=== PATIENT | male | born 1950 | race Caucasian/White ===

== ENCOUNTER 2022-02-10 14:28 | Inpatient (IN) | payer MEDICARE, OTHER ==
[~2022-02-10] VITALS: Ht 175.3 cm; Wt 78.5 kg
[~2022-02-10 14:28] MED LIST: AMLO-258 PO; FISH1CAP27 PO; METF-1211 PO; PRAV10TA39 PO
[2022-02-10] MEDS ORDERED: CEFX2I IV ×2 (15:38→15:40)
[2022-02-10] MEDS ORDERED: DOCU-385 PO (15:40)
[2022-02-10] MEDS ORDERED: MULT-1203 PO (15:42)
[2022-02-10] MEDS ORDERED: SENN8.6T90 PO (15:45)
[2022-02-10] MEDS ORDERED: ACET-2080 PO (15:50)
[2022-02-10] MEDS ORDERED: ACET-2247 PO (15:51)
[2022-02-10] MEDS ORDERED: BACI28OI29 TP (15:52)
[2022-02-10] MEDS ORDERED: BISA10SU11 PR (15:54)
[2022-02-10] MEDS ORDERED: BENZ1LOZ50 PO (15:54)
[2022-02-10] MEDS ORDERED: HYDR-4069 PO (15:59)
[2022-02-10] MEDS ORDERED: HYDR-3831 PO (16:00)
[2022-02-10] MEDS ORDERED: HYDR-4527 PO (17:06)
[2022-02-10] MEDS ORDERED: CEFT1VIA15 IV (17:06)
[2022-02-10] MEDS ORDERED: VANC1.5P11 IVPB (17:12)
[2022-02-10] MEDS ORDERED: DEXT50DI6 IVP (17:14)
[2022-02-10] MEDS ORDERED: DIPH25CA85 PO (17:15)
[2022-02-10] MEDS ORDERED: INSU100V SQ (17:16)
[2022-02-10] MEDS ORDERED: MAG30ORA11 PO (17:17)
[2022-02-10] MEDS ORDERED: ONDA-104 PO (17:18)
[2022-02-10] MEDS ORDERED: PERCT PO (17:18)
[2022-02-10] MEDS ORDERED: POLY17PO47 PO (17:19)
[2022-02-10] MEDS ORDERED: ACETAMINOPHEN 325 MG TABLET PO PRN (18:00)
[2022-02-10] MEDS ORDERED: DEXTROSE 50%-WATER 25 GM/50 ML SYRINGE IVP PRN (18:00)
[2022-02-10] MEDS: INSULIN LISPRO 100 UNITS/ML SQ PRN ×2 (18:17→22:13)
[2022-02-10 18:24] VITALS: BP 154/56
[2022-02-10 19:06] LABS: GLUCOMETER DEV NAME(LOC) 2WR.2B; GLUCOSE,POINT OF CARE 142 MG/DL (70-110)
[2022-02-10] MEDS ORDERED: SODIUM CHLORIDE 0.9% 250 ML IV ONE (19:54)
[2022-02-10 20:00] VITALS: BP 149/75
[2022-02-10] MEDS ORDERED: BENZOCAINE/MENTHOL LOZENGE PO PRN (20:00)
[2022-02-10] MEDS ORDERED: POLYETHYLENE GLYCOL 3350 17 GM PACKET PO PRN (20:00)
[2022-02-10] MEDS ORDERED: HydrOXYzine HCL 25 MG TABLET PO PRN (20:00)
[2022-02-10] MEDS ORDERED: ONDANSETRON HCL 4 MG TABLET PO PRN (20:00)
[2022-02-10] MEDS ORDERED: MAG HYDROX/AL HYDROX/SIMETH 30 ML SUSP UDCUP PO PRN (20:00)
[2022-02-10] MEDS ORDERED: BISACODYL 10 MG RECTAL RECTAL SUPPOSITORY PR PRN (20:00)
[2022-02-10] MEDS ORDERED: MELATONIN 5 MG TABLET PO PRN (20:15)
[2022-02-10] MEDS: SENNA 187 MG TABLET PO SCH (20:31)
[2022-02-10] MEDS: DOCUSATE SODIUM 100 MG CAPSULE PO SCH (20:31)
[2022-02-10] MEDS: OxyCODONE HCL/ACETAMINOPHEN 5-325 MG TABLET PO PRN (20:36)
[2022-02-10] MEDS: ETHYL ALCOHOL 62% ANTISEPTIC NASAL SANITIZER 0.6 ML AMPUL NASAL SCH (21:02)
[2022-02-10] MEDS: VANCOMYCIN HCL 1.5 GM in DEXTROSE 5%-WATER 250 ML IV SCH (21:02)
[2022-02-10] MEDS: CefTRIAXone 1 GM/DEXTROSE 50 ML IV SCH (22:04)
[2022-02-10 22:32] LABS: GLUCOMETER DEV NAME(LOC) 2WR.2B; GLUCOSE,POINT OF CARE 233 MG/DL (70-110)
[2022-02-11] MEDS: OxyCODONE HCL/ACETAMINOPHEN 5-325 MG TABLET PO PRN ×4 (02:10→20:03)
[2022-02-11 07:11] LABS: GLUCOMETER DEV NAME(LOC) 2WR.2B; GLUCOSE,POINT OF CARE 143 MG/DL (70-110)
[2022-02-11 07:57] LABS: ALANINE AMINOTRANSFERASE 199 U/L (12-78); ALBUMIN 2.7 g/dL (3.4-5.0); ALKALINE PHOSPHATASE 221 U/L (46-116); ANION GAP 7 mmol/L (8-16); ASPARTATE AMINOTRANSFERASE 127 U/L (15-37); BILIRUBIN,TOTAL 0.7 mg/dL (0.1-1.0); CALCIUM, TOTAL 8.7 mg/dL (8.8-10.5); CARBON DIOXIDE 26 mmol/L (22-29); CHLORIDE 98 mmol/L (98-107); CREATININE 0.79 mg/dL (0.60-1.30); GLUCOSE,RANDOM 148 mg/dL (70-110); POTASSIUM 3.7 mmol/L (3.5-5.1); SODIUM SERUM 131 mmol/L (136-145); TOTAL PROTEIN, SERUM 6.5 g/dL (6.4-8.2); UREA NITROGEN, BLOOD 18 mg/dL (7-18)
[2022-02-11 07:58] LABS: GLOMERULAR FILTR. RATE CALC > 60 mL/min (>60)
[2022-02-11] MEDS: VANCOMYCIN HCL 1.5 GM in DEXTROSE 5%-WATER 250 ML IV SCH ×2 (08:03→19:31)
[2022-02-11 08:04] LABS: HEMATOCRIT 32.9 % (41-53); HEMOGLOBIN 10.9 g/dL (13.5-17.5); MEAN CORPUSCULAR HEMOGLOBIN 27.5 pg (26.0-34.0); MEAN CORPUSCULAR HGB CONC 33.2 G/dL (31.0-37.0); MEAN CORPUSCULAR VOLUME 83 fL (80-100); RED BLOOD CELL COUNT(AUTO) 3.97 MIL/uL (4.50-5.90); RED CELL DISTRIBUTION WIDTH 14.8 % (11.5-14.5)
[2022-02-11] MEDS: INSULIN LISPRO 100 UNITS/ML SQ PRN ×3 (08:06→21:07)
[2022-02-11] MEDS: ETHYL ALCOHOL 62% ANTISEPTIC NASAL SANITIZER 0.6 ML AMPUL NASAL SCH ×2 (08:13→19:56)
[2022-02-11] MEDS: DOCUSATE SODIUM 100 MG CAPSULE PO SCH ×2 (08:14→19:56)
[2022-02-11] MEDS: MULTIVITAMINS, THERAPEUTIC TABLET PO SCH (08:14)
[2022-02-11 08:29] LABS: PLATELET COUNT (AUTO) 236 K/uL (150-450)
[2022-02-11 08:30] LABS: BAND NEUTROPHILS % (MANUAL) 0 % (0-5)
[2022-02-11 08:33] LABS: LYMPHOCYTES % (MANUAL) 17 % (22-44); MONOCYTES % (MANUAL) 4 % (2-9); SEGMENTED NEUTROPHILS % 79 % (40-70)
[2022-02-11 08:35] VITALS: BP 140/78
[2022-02-11 10:20] VITALS: BP 140/78
[2022-02-11 12:36] LABS: GLUCOMETER DEV NAME(LOC) 2WR.2B; GLUCOSE,POINT OF CARE 194 MG/DL (70-110)
[2022-02-11 15:56] LABS: APPEARANCE,URINE CLEAR (CLEAR); BILIRUBIN,URINE NEGATIVE (NEGATIVE); GLUCOSE, URINE (UA) NEGATIVE (NEGATIVE); KETONES,URINE NEGATIVE (NEGATIVE); LEUKOCYTE ESTERASE ,URINE NEGATIVE (NEGATIVE); NITRATE,URINE NEGATIVE (NEGATIVE); OCCULT BLOOD,URINE NEGATIVE (NEGATIVE); PROTEIN,URINE NEGATIVE (NEGATIVE); SPECIFIC GRAVITIY, URINE 1.008 (1.003-1.030); UROBILINOGEN,URINE <=1.0 mg/dL (<=1.0)
[2022-02-11 16:03] LABS: BACTERIA,URINE None Seen /HPF (None Seen); RBC,URINE 0-2 /HPF (0-2); SQUAMOUS EPITHELIAL CELL,UR Rare /LPF (None Seen); WBC,URINE 0-2 /HPF (0-5)
[2022-02-11 16:11] VITALS: BP 145/87
[2022-02-11] MEDS: TAMSULOSIN HCL 0.4 MG CAPSULE PO SCH (19:56)
[2022-02-11] MEDS: SENNA 187 MG TABLET PO SCH (19:56)
[2022-02-11] MEDS: ENOXAPARIN SODIUM 30 MG/0.3 ML PF SYRINGE SQ SCH (19:57)
[2022-02-11 20:03] VITALS: BP 124/76
[2022-02-11] MEDS: CefTRIAXone 1 GM/DEXTROSE 50 ML IV SCH (21:03)
[2022-02-11 22:01] LABS: GLUCOMETER DEV NAME(LOC) 2WR.2B; GLUCOSE,POINT OF CARE 136 MG/DL (70-110)
[2022-02-11 22:01] LABS: GLUCOMETER DEV NAME(LOC) 2WR.2B; GLUCOSE,POINT OF CARE 225 MG/DL (70-110)
[2022-02-12] MEDS: HYDROCODONE/ACETAMINOPHEN 5-325 MG TABLET PO PRN (01:04)
[2022-02-12 06:41] LABS: GLUCOMETER DEV NAME(LOC) 2WR.1C; GLUCOSE,POINT OF CARE 146 MG/DL (70-110)
[2022-02-12] MEDS: VANCOMYCIN HCL 1.5 GM in DEXTROSE 5%-WATER 250 ML IV SCH ×2 (07:39→19:37)
[2022-02-12] MEDS: ENOXAPARIN SODIUM 30 MG/0.3 ML PF SYRINGE SQ SCH ×2 (07:46→20:39)
[2022-02-12] MEDS: MULTIVITAMINS, THERAPEUTIC TABLET PO SCH (07:46)
[2022-02-12] MEDS: ETHYL ALCOHOL 62% ANTISEPTIC NASAL SANITIZER 0.6 ML AMPUL NASAL SCH ×2 (07:46→20:38)
[2022-02-12] MEDS: DOCUSATE SODIUM 100 MG CAPSULE PO SCH ×2 (07:46→20:38)
[2022-02-12] MEDS: INSULIN LISPRO 100 UNITS/ML SQ PRN ×4 (07:53→21:33)
[2022-02-12 08:22] VITALS: BP 158/81
[2022-02-12] MEDS: OxyCODONE HCL/ACETAMINOPHEN 5-325 MG TABLET PO PRN ×3 (08:22→21:32)
[2022-02-12 12:11] LABS: GLUCOMETER DEV NAME(LOC) 2WR.2B; GLUCOSE,POINT OF CARE 162 MG/DL (70-110)
[2022-02-12 12:22] VITALS: BP 138/74
[2022-02-12 18:02] LABS: GLUCOMETER DEV NAME(LOC) 2WR.1C; GLUCOSE,POINT OF CARE 153 MG/DL (70-110)
[2022-02-12] MEDS: SENNA 187 MG TABLET PO SCH (20:38)
[2022-02-12] MEDS: TraZODone HCL 50 MG TABLET PO PRN (20:39)
[2022-02-12] MEDS: TAMSULOSIN HCL 0.4 MG CAPSULE PO SCH (20:39)
[2022-02-12] MEDS: CefTRIAXone 1 GM/DEXTROSE 50 ML IV SCH (20:44)
[2022-02-12 21:32] VITALS: BP 134/86
[2022-02-12] MEDS ORDERED: SODIUM CHLORIDE 0.9% 250 ML IV ONE (21:38)
[2022-02-12 22:01] LABS: GLUCOMETER DEV NAME(LOC) 2WR.2B; GLUCOSE,POINT OF CARE 202 MG/DL (70-110)
[2022-02-13] MEDS: OxyCODONE HCL/ACETAMINOPHEN 5-325 MG TABLET PO PRN ×3 (06:30→19:22)
[2022-02-13 07:09] LABS: ALANINE AMINOTRANSFERASE 218 U/L (12-78); ALBUMIN 2.8 g/dL (3.4-5.0); ALKALINE PHOSPHATASE 234 U/L (46-116); ANION GAP 6 mmol/L (8-16); ASPARTATE AMINOTRANSFERASE 68 U/L (15-37); BILIRUBIN,TOTAL 0.5 mg/dL (0.1-1.0); CALCIUM, TOTAL 8.8 mg/dL (8.8-10.5); CARBON DIOXIDE 29 mmol/L (22-29); CHLORIDE 100 mmol/L (98-107); CREATININE 0.95 mg/dL (0.60-1.30); GLUCOSE,RANDOM 160 mg/dL (70-110); SODIUM SERUM 135 mmol/L (136-145); TOTAL PROTEIN, SERUM 6.6 g/dL (6.4-8.2); UREA NITROGEN, BLOOD 22 mg/dL (7-18)
[2022-02-13 07:11] LABS: GLOMERULAR FILTR. RATE CALC > 60 mL/min (>60)
[2022-02-13 07:25] VITALS: BP 150/73
[2022-02-13 08:07] LABS: HEPATITIS C AB (EIA) <0.1 s/co ratio (0.0-0.9)
[2022-02-13] MEDS: VANCOMYCIN HCL 1.5 GM in DEXTROSE 5%-WATER 250 ML IV SCH ×2 (08:25→20:22)
[2022-02-13] MEDS: DOCUSATE SODIUM 100 MG CAPSULE PO SCH ×3 (08:26→21:00)
[2022-02-13] MEDS: MULTIVITAMINS, THERAPEUTIC TABLET PO SCH (08:26)
[2022-02-13] MEDS: ENOXAPARIN SODIUM 30 MG/0.3 ML PF SYRINGE SQ SCH ×2 (08:26→20:42)
[2022-02-13] MEDS: ETHYL ALCOHOL 62% ANTISEPTIC NASAL SANITIZER 0.6 ML AMPUL NASAL SCH ×2 (08:27→20:42)
[2022-02-13] MEDS: INSULIN LISPRO 100 UNITS/ML SQ PRN ×3 (09:09→20:55)
[2022-02-13 11:00] VITALS: BP 148/81
[2022-02-13 18:11] LABS: GLUCOMETER DEV NAME(LOC) 2WR.2B; GLUCOSE,POINT OF CARE 152 MG/DL (70-110)
[2022-02-13] MEDS: TraZODone HCL 50 MG TABLET PO PRN (19:20)
[2022-02-13 20:23] VITALS: BP 144/82
[2022-02-13] MEDS: SENNA 187 MG TABLET PO SCH ×2 (20:42→21:00)
[2022-02-13] MEDS: TAMSULOSIN HCL 0.4 MG CAPSULE PO SCH (20:43)
[2022-02-13] MEDS: CefTRIAXone 1 GM/DEXTROSE 50 ML IV SCH (21:43)
[2022-02-13 22:16] LABS: GLUCOMETER DEV NAME(LOC) 2WR.2B; GLUCOSE,POINT OF CARE 208 MG/DL (70-110)
[2022-02-13 22:41] LABS: GLUCOMETER DEV NAME(LOC) 2WR.1C; GLUCOSE,POINT OF CARE 151 MG/DL (70-110)
[2022-02-13 22:41] LABS: GLUCOMETER DEV NAME(LOC) 2WR.1C; GLUCOSE,POINT OF CARE 139 MG/DL (70-110)
[2022-02-14] MEDS: OxyCODONE HCL/ACETAMINOPHEN 5-325 MG TABLET PO PRN ×2 (04:52→14:12)
[2022-02-14] MEDS: VANCOMYCIN HCL 1.5 GM in DEXTROSE 5%-WATER 250 ML IV SCH ×2 (07:49→20:51)
[2022-02-14] MEDS: 0.9% SODIUM CHLORIDE 10 ML SYRINGE IVP SCH ×2 (07:50→20:16)
[2022-02-14] MEDS: ENOXAPARIN SODIUM 30 MG/0.3 ML PF SYRINGE SQ SCH ×2 (07:54→20:14)
[2022-02-14] MEDS: DOCUSATE SODIUM 100 MG CAPSULE PO SCH ×2 (07:54→20:15)
[2022-02-14] MEDS: ETHYL ALCOHOL 62% ANTISEPTIC NASAL SANITIZER 0.6 ML AMPUL NASAL SCH ×2 (07:54→20:15)
[2022-02-14] MEDS: MULTIVITAMINS, THERAPEUTIC TABLET PO SCH (07:54)
[2022-02-14 08:51] VITALS: BP 100/68
[2022-02-14 12:16] LABS: GLUCOMETER DEV NAME(LOC) 2WR.2B; GLUCOSE,POINT OF CARE 136 MG/DL (70-110)
[2022-02-14] MEDS: INSULIN LISPRO 100 UNITS/ML SQ PRN (17:06)
[2022-02-14 17:16] LABS: GLUCOMETER DEV NAME(LOC) 2WR.2B; GLUCOSE,POINT OF CARE 153 MG/DL (70-110)
[2022-02-14 20:00] VITALS: BP 154/93
[2022-02-14] MEDS: CefTRIAXone 1 GM/DEXTROSE 50 ML IV SCH (20:14)
[2022-02-14] MEDS: SENNA 187 MG TABLET PO SCH (20:15)
[2022-02-14] MEDS: TAMSULOSIN HCL 0.4 MG CAPSULE PO SCH (20:15)
[2022-02-14 20:46] LABS: GLUCOMETER DEV NAME(LOC) 2WR.1C; GLUCOSE,POINT OF CARE 136 MG/DL (70-110)
[2022-02-14] MEDS: TraZODone HCL 50 MG TABLET PO PRN (20:51)
[2022-02-14 21:51] LABS: GLUCOMETER DEV NAME(LOC) 2WR.2B; GLUCOSE,POINT OF CARE 132 MG/DL (70-110)
[2022-02-15] MEDS: OxyCODONE HCL/ACETAMINOPHEN 5-325 MG TABLET PO PRN ×2 (01:58→20:20)
[2022-02-15 07:26] LABS: GLUCOMETER DEV NAME(LOC) 2WR.1C; GLUCOSE,POINT OF CARE 144 MG/DL (70-110)
[2022-02-15] MEDS: INSULIN LISPRO 100 UNITS/ML SQ PRN ×2 (07:39→20:25)
[2022-02-15] MEDS: VANCOMYCIN HCL 1.5 GM in DEXTROSE 5%-WATER 250 ML IV SCH ×2 (07:47→19:58)
[2022-02-15 08:00] VITALS: BP 143/89
[2022-02-15] MEDS: ETHYL ALCOHOL 62% ANTISEPTIC NASAL SANITIZER 0.6 ML AMPUL NASAL SCH ×2 (08:56→20:20)
[2022-02-15] MEDS: DOCUSATE SODIUM 100 MG CAPSULE PO SCH ×2 (08:57→20:19)
[2022-02-15] MEDS: ENOXAPARIN SODIUM 30 MG/0.3 ML PF SYRINGE SQ SCH ×2 (08:58→20:19)
[2022-02-15] MEDS: MULTIVITAMINS, THERAPEUTIC TABLET PO SCH (08:58)
[2022-02-15] MEDS: 0.9% SODIUM CHLORIDE 10 ML SYRINGE IVP SCH ×2 (08:59→22:09)
[2022-02-15 20:15] VITALS: BP 145/74
[2022-02-15] MEDS: TAMSULOSIN HCL 0.4 MG CAPSULE PO SCH (20:19)
[2022-02-15] MEDS: SENNA 187 MG TABLET PO SCH (20:19)
[2022-02-15] MEDS: TraZODone HCL 50 MG TABLET PO PRN (20:19)
[2022-02-15 20:56] LABS: GLUCOMETER DEV NAME(LOC) 2WR.2B; GLUCOSE,POINT OF CARE 169 MG/DL (70-110)
[2022-02-15] MEDS: CefTRIAXone 1 GM/DEXTROSE 50 ML IV SCH (22:09)
[2022-02-16 05:46] LABS: GLUCOMETER DEV NAME(LOC) 2WR.1C; GLUCOSE,POINT OF CARE 126 MG/DL (70-110)
[2022-02-16 07:10] LABS: ALANINE AMINOTRANSFERASE 114 U/L (12-78); ALKALINE PHOSPHATASE 179 U/L (46-116); ANION GAP 6 mmol/L (8-16); ASPARTATE AMINOTRANSFERASE 31 U/L (15-37); BILIRUBIN,TOTAL 0.5 mg/dL (0.1-1.0); CALCIUM, TOTAL 8.8 mg/dL (8.8-10.5); CARBON DIOXIDE 29 mmol/L (22-29); CHLORIDE 100 mmol/L (98-107); CREATININE 0.95 mg/dL (0.60-1.30); GLUCOSE,RANDOM 151 mg/dL (70-110); POTASSIUM 4.1 mmol/L (3.5-5.1); SODIUM SERUM 135 mmol/L (136-145); TOTAL PROTEIN, SERUM 6.7 g/dL (6.4-8.2); UREA NITROGEN, BLOOD 17 mg/dL (7-18)
[2022-02-16 07:15] LABS: GLOMERULAR FILTR. RATE CALC > 60 mL/min (>60)
[2022-02-16] MEDS ORDERED: SODIUM CHLORIDE 0.9% 100 ML ONE (08:08)
[2022-02-16] MEDS: VANCOMYCIN HCL 1.5 GM in DEXTROSE 5%-WATER 250 ML IV SCH ×2 (08:10→19:54)
[2022-02-16 08:15] VITALS: BP 157/89
[2022-02-16] MEDS: ENOXAPARIN SODIUM 30 MG/0.3 ML PF SYRINGE SQ SCH ×2 (08:16→20:35)
[2022-02-16] MEDS: MULTIVITAMINS, THERAPEUTIC TABLET PO SCH (08:17)
[2022-02-16] MEDS: DOCUSATE SODIUM 100 MG CAPSULE PO SCH ×2 (08:17→20:34)
[2022-02-16] MEDS: INSULIN LISPRO 100 UNITS/ML SQ PRN ×3 (08:21→20:40)
[2022-02-16] MEDS: ETHYL ALCOHOL 62% ANTISEPTIC NASAL SANITIZER 0.6 ML AMPUL NASAL SCH ×2 (08:24→20:34)
[2022-02-16] MEDS: OxyCODONE HCL/ACETAMINOPHEN 5-325 MG TABLET PO PRN ×2 (08:27→20:42)
[2022-02-16] MEDS: 0.9% SODIUM CHLORIDE 10 ML SYRINGE IVP SCH ×2 (09:57→23:32)
[2022-02-16 12:11] LABS: GLUCOMETER DEV NAME(LOC) 2WR.2B; GLUCOSE,POINT OF CARE 158 MG/DL (70-110)
[2022-02-16] MEDS: GABAPENTIN 100 MG CAPSULE PO SCH ×2 (16:11→20:34)
[2022-02-16] MEDS: MetFORMIN HCL 500 MG TABLET PO SCH (17:32)
[2022-02-16 19:46] LABS: GLUCOMETER DEV NAME(LOC) 2WR.2B; GLUCOSE,POINT OF CARE 132 MG/DL (70-110)
[2022-02-16 20:11] VITALS: BP 161/78
[2022-02-16] MEDS: TraZODone HCL 50 MG TABLET PO PRN (20:34)
[2022-02-16] MEDS: SENNA 187 MG TABLET PO SCH (20:34)
[2022-02-16] MEDS: TAMSULOSIN HCL 0.4 MG CAPSULE PO SCH (20:35)
[2022-02-16 20:36] LABS: GLUCOMETER DEV NAME(LOC) 2WR.1C; GLUCOSE,POINT OF CARE 151 MG/DL (70-110)
[2022-02-16 20:42] VITALS: BP 146/74
[2022-02-16 21:31] LABS: GLUCOMETER DEV NAME(LOC) 2WR.1C; GLUCOSE,POINT OF CARE 235 MG/DL (70-110)
[2022-02-16] MEDS: CefTRIAXone 1 GM/DEXTROSE 50 ML IV SCH (23:31)
[2022-02-17] MEDS: TraZODone HCL 50 MG TABLET PO PRN ×3 (05:38→21:05)
[2022-02-17 07:11] LABS: GLUCOMETER DEV NAME(LOC) 2WR.2B; GLUCOSE,POINT OF CARE 139 MG/DL (70-110)
[2022-02-17] MEDS: GABAPENTIN 100 MG CAPSULE PO SCH ×3 (08:32→21:05)
[2022-02-17] MEDS: MetFORMIN HCL 500 MG TABLET PO SCH ×2 (08:32→16:15)
[2022-02-17] MEDS: MULTIVITAMINS, THERAPEUTIC TABLET PO SCH (08:32)
[2022-02-17] MEDS: ETHYL ALCOHOL 62% ANTISEPTIC NASAL SANITIZER 0.6 ML AMPUL NASAL SCH ×2 (08:33→21:12)
[2022-02-17] MEDS: ENOXAPARIN SODIUM 30 MG/0.3 ML PF SYRINGE SQ SCH ×2 (08:33→21:04)
[2022-02-17] MEDS: DOCUSATE SODIUM 100 MG CAPSULE PO SCH ×2 (08:33→21:04)
[2022-02-17] MEDS: 0.9% SODIUM CHLORIDE 10 ML SYRINGE IVP SCH ×2 (08:33→21:17)
[2022-02-17 08:42] VITALS: BP 138/77
[2022-02-17] MEDS: OxyCODONE HCL/ACETAMINOPHEN 5-325 MG TABLET PO PRN (08:42)
[2022-02-17 14:31] LABS: GLUCOMETER DEV NAME(LOC) 2WR.2B; GLUCOSE,POINT OF CARE 109 MG/DL (70-110)
[2022-02-17 16:55] LABS: GLUCOMETER DEV NAME(LOC) 2WR.2B; GLUCOSE,POINT OF CARE 107 MG/DL (70-110)
[2022-02-17 20:02] VITALS: BP 131/77
[2022-02-17] MEDS: TAMSULOSIN HCL 0.4 MG CAPSULE PO SCH (21:04)
[2022-02-17] MEDS: SENNA 187 MG TABLET PO SCH (21:05)
[2022-02-17] MEDS: HYDROCODONE/ACETAMINOPHEN 5-325 MG TABLET PO PRN (21:05)
[2022-02-17] MEDS: INSULIN LISPRO 100 UNITS/ML SQ PRN (21:15)
[2022-02-17 21:32] LABS: GLUCOMETER DEV NAME(LOC) 2WR.2B; GLUCOSE,POINT OF CARE 143 MG/DL (70-110)
[2022-02-18 07:16] LABS: GLUCOMETER DEV NAME(LOC) 2WR.1C; GLUCOSE,POINT OF CARE 109 MG/DL (70-110)
[2022-02-18 08:10] VITALS: BP 143/71
[2022-02-18] MEDS: MetFORMIN HCL 500 MG TABLET PO SCH (08:20)
[2022-02-18] MEDS: DOCUSATE SODIUM 100 MG CAPSULE PO SCH ×2 (08:21→20:20)
[2022-02-18] MEDS: ETHYL ALCOHOL 62% ANTISEPTIC NASAL SANITIZER 0.6 ML AMPUL NASAL SCH ×2 (08:21→20:19)
[2022-02-18] MEDS: MULTIVITAMINS, THERAPEUTIC TABLET PO SCH (08:22)
[2022-02-18] MEDS: GABAPENTIN 100 MG CAPSULE PO SCH ×3 (08:23→20:20)
[2022-02-18] MEDS: ENOXAPARIN SODIUM 30 MG/0.3 ML PF SYRINGE SQ SCH ×2 (08:24→20:20)
[2022-02-18] MEDS: 0.9% SODIUM CHLORIDE 10 ML SYRINGE IVP SCH ×2 (08:30→20:19)
[2022-02-18] MEDS: HYDROCODONE/ACETAMINOPHEN 5-325 MG TABLET PO PRN ×3 (12:15→20:21)
[2022-02-18] MEDS: INSULIN LISPRO 100 UNITS/ML SQ PRN (17:51)
[2022-02-18] MEDS: MetFORMIN HCL 850 MG TABLET PO SCH (17:51)
[2022-02-18 18:52] LABS: GLUCOMETER DEV NAME(LOC) 2WR.2B; GLUCOSE,POINT OF CARE 164 MG/DL (70-110)
[2022-02-18 18:56] LABS: GLUCOMETER DEV NAME(LOC) 2WR.1C; GLUCOSE,POINT OF CARE 108 MG/DL (70-110)
[2022-02-18 19:57] VITALS: BP 140/69
[2022-02-18] MEDS: SENNA 187 MG TABLET PO SCH (20:20)
[2022-02-18] MEDS: TAMSULOSIN HCL 0.4 MG CAPSULE PO SCH (20:20)
[2022-02-18] MEDS: TraZODone HCL 50 MG TABLET PO PRN (20:21)
[2022-02-19 05:26] LABS: GLUCOMETER DEV NAME(LOC) 2WR.1C; GLUCOSE,POINT OF CARE 117 MG/DL (70-110)
[2022-02-19 07:06] LABS: GLUCOMETER DEV NAME(LOC) 2WR.1C; GLUCOSE,POINT OF CARE 113 MG/DL (70-110)
[2022-02-19] MEDS: ETHYL ALCOHOL 62% ANTISEPTIC NASAL SANITIZER 0.6 ML AMPUL NASAL SCH ×2 (08:17→20:07)
[2022-02-19] MEDS: GABAPENTIN 100 MG CAPSULE PO SCH ×3 (08:18→20:05)
[2022-02-19] MEDS: MULTIVITAMINS, THERAPEUTIC TABLET PO SCH (08:18)
[2022-02-19] MEDS: ENOXAPARIN SODIUM 30 MG/0.3 ML PF SYRINGE SQ SCH ×2 (08:18→20:05)
[2022-02-19] MEDS: DOCUSATE SODIUM 100 MG CAPSULE PO SCH ×2 (08:18→20:03)
[2022-02-19] MEDS: MetFORMIN HCL 850 MG TABLET PO SCH ×2 (08:18→15:45)
[2022-02-19] MEDS: 0.9% SODIUM CHLORIDE 10 ML SYRINGE IVP SCH ×2 (08:19→20:07)
[2022-02-19] MEDS: HYDROCODONE/ACETAMINOPHEN 5-325 MG TABLET PO PRN ×2 (08:28→20:10)
[2022-02-19 08:30] VITALS: BP 143/76
[2022-02-19 12:22] LABS: GLUCOMETER DEV NAME(LOC) 2WR.1C; GLUCOSE,POINT OF CARE 102 MG/DL (70-110)
[2022-02-19 17:31] LABS: GLUCOMETER DEV NAME(LOC) 2WR.1C; GLUCOSE,POINT OF CARE 101 MG/DL (70-110)
[2022-02-19] MEDS: SENNA 187 MG TABLET PO SCH (20:03)
[2022-02-19] MEDS: TAMSULOSIN HCL 0.4 MG CAPSULE PO SCH (20:05)
[2022-02-19 20:10] VITALS: BP 147/77
[2022-02-20 05:41] LABS: GLUCOMETER DEV NAME(LOC) 2WR.1C; GLUCOSE,POINT OF CARE 123 MG/DL (70-110)
[2022-02-20 07:50] VITALS: BP 138/74
[2022-02-20] MEDS: MetFORMIN HCL 850 MG TABLET PO SCH ×2 (08:43→16:29)
[2022-02-20] MEDS: ETHYL ALCOHOL 62% ANTISEPTIC NASAL SANITIZER 0.6 ML AMPUL NASAL SCH ×2 (08:43→20:23)
[2022-02-20] MEDS: GABAPENTIN 100 MG CAPSULE PO SCH ×3 (08:44→20:22)
[2022-02-20] MEDS: DOCUSATE SODIUM 100 MG CAPSULE PO SCH ×2 (08:44→20:23)
[2022-02-20] MEDS: MULTIVITAMINS, THERAPEUTIC TABLET PO SCH (08:44)
[2022-02-20] MEDS: ENOXAPARIN SODIUM 30 MG/0.3 ML PF SYRINGE SQ SCH ×2 (08:44→20:22)
[2022-02-20] MEDS: HYDROCODONE/ACETAMINOPHEN 5-325 MG TABLET PO PRN ×2 (08:52→20:36)
[2022-02-20] MEDS: 0.9% SODIUM CHLORIDE 10 ML SYRINGE IVP SCH ×2 (08:52→20:23)
[2022-02-20 09:11] LABS: GLUCOMETER DEV NAME(LOC) 2WR.1C; GLUCOSE,POINT OF CARE 93 MG/DL (70-110)
[2022-02-20] MEDS ORDERED: TAMS-13 PO (10:40)
[2022-02-20] MEDS ORDERED: METF-1185 PO (10:40)
[2022-02-20] MEDS ORDERED: GABA-1216 PO (10:40)
[2022-02-20] MEDS ORDERED: MELA5TAB40 PO (10:42)
[2022-02-20] MEDS ORDERED: TRAZ-252 PO (10:42)
[2022-02-20 12:51] LABS: GLUCOMETER DEV NAME(LOC) 2WR.2B; GLUCOSE,POINT OF CARE 100 MG/DL (70-110)
[2022-02-20 18:50] LABS: GLUCOMETER DEV NAME(LOC) 2WR.1C; GLUCOSE,POINT OF CARE 95 MG/DL (70-110)
[2022-02-20 20:00] VITALS: BP 127/72
[2022-02-20] MEDS: SENNA 187 MG TABLET PO SCH (20:23)
[2022-02-20] MEDS: TAMSULOSIN HCL 0.4 MG CAPSULE PO SCH (20:23)
[2022-02-20] MEDS ORDERED: HYDR-4723 PO (20:49)
[2022-02-20 21:41] LABS: GLUCOMETER DEV NAME(LOC) 2WR.2B; GLUCOSE,POINT OF CARE 131 MG/DL (70-110)
[2022-02-21 07:11] LABS: GLUCOMETER DEV NAME(LOC) 2WR.2B; GLUCOSE,POINT OF CARE 87 MG/DL (70-110)
[2022-02-21] MEDS: GABAPENTIN 100 MG CAPSULE PO SCH (08:08)
[2022-02-21] MEDS: MULTIVITAMINS, THERAPEUTIC TABLET PO SCH (08:08)
[2022-02-21] MEDS: MetFORMIN HCL 850 MG TABLET PO SCH (08:08)
[2022-02-21] MEDS: ENOXAPARIN SODIUM 30 MG/0.3 ML PF SYRINGE SQ SCH (08:09)
[2022-02-21 08:10] VITALS: BP 141/88
[2022-02-21] MEDS: ETHYL ALCOHOL 62% ANTISEPTIC NASAL SANITIZER 0.6 ML AMPUL NASAL SCH (08:17)
[2022-02-21] MEDS: HYDROCODONE/ACETAMINOPHEN 5-325 MG TABLET PO PRN ×2 (08:17→13:01)
[2022-02-21] MEDS: DOCUSATE SODIUM 100 MG CAPSULE PO SCH (08:30)
[2022-02-21] MEDS ORDERED: SENN-187 PO (10:24)
[2022-02-21] MEDS ORDERED: METF-1185 PO (10:24)
[2022-02-21] MEDS ORDERED: TAMS-13 PO (10:24)
[2022-02-21] MEDS ORDERED: HYDR-4723 PO (10:24)
[2022-02-21] MEDS ORDERED: DOCU-385 PO (10:24)
[2022-02-21] MEDS ORDERED: Multivitamins/Therapeutic PO (10:24)
[2022-02-21] MEDS ORDERED: GABA-1216 PO (10:24)
[2022-02-21] MEDS ORDERED: TRAZ-252 PO (10:24)
[2022-02-21 18:56] LABS: GLUCOMETER DEV NAME(LOC) 2WR.1C; GLUCOSE,POINT OF CARE 89 MG/DL (70-110)
== END 2022-02-21 13:00 | disposition home health service (06) | DRG 551 ==
LOC: 2WR 15:09
PROVIDERS: ADMIT Physical Medicine & Rehabilitation; ATTEND Physical Medicine & Rehabilitation
DX: M48.07 Spinal stenosis, lumbosacral region (principal); J18.9 Pneumonia, unspecified organism; E87.1 Hypo-osmolality and hyponatremia; G96.00 Cerebrospinal fluid leak, unspecified; E46 Unspecified protein-calorie malnutrition; G89.29 Other chronic pain; M54.50 Low back pain, unspecified; R74.8 Abnormal levels of other serum enzymes; I10 Essential (primary) hypertension; D64.9 Anemia, unspecified; E11.9 Type 2 diabetes mellitus without complications; M48.061 Spinal stenosis, lumbar region without neurogenic claudication; N40.1 Benign prostatic hyperplasia with lower urinary tract symptoms; M47.816 Spondylosis without myelopathy or radiculopathy, lumbar region; K80.20 Calculus of gallbladder without cholecystitis without obstruction; R74.01 Elevation of levels of liver transaminase levels; G47.00 Insomnia, unspecified; K59.00 Constipation, unspecified; E78.5 Hyperlipidemia, unspecified; Z98.1 Arthrodesis status; Z79.899 Other long term (current) drug therapy; Z68.25 Body mass index [BMI] 25.0-25.9, adult
CPT/HCPCS: 71046; 76700; 80053; 80074; 81001; 82962; 83036; 84443; 85025; 87081; 97110; 97112; 97116; 97140; 97163; 97166; 97530; 97535; 99366; J0696; J1650; J3370; J7050; J7060; 36415-L1; 36415-TC